=== PATIENT | male | born 1990 | race Caucasian/White ===

== ENCOUNTER 2021-02-12 20:23 | Emergency (ER) | payer SELFPAY ==
[~2021-02-12] VITALS: Ht 188 cm; Wt 91.0 kg
[2021-02-12 20:31] VITALS: BP 150/110
== END 2021-02-12 21:30 | disposition home or self-care (01) ==
LOC: ER 20:23
DX: R06.09 Other forms of dyspnea (principal)
CPT/HCPCS: 99283